=== PATIENT | male | born 2000 | race Caucasian/White ===

== ENCOUNTER 2019-11-21 08:06 | Emergency (ER) | payer OTHER, SELFPAY ==
--- NOTE | ~2019-11-21 | CT_ITS ---
EXAMINATION: CT abdomen pelvis w con INDICATION: Lower abdominal pain, history of appendectomy TECHNIQUE: Computed tomographic images of the abdomen and pelvis were obtained after the administrati on of 100 cc of Omnipaque 350 intravenous contrast. The dose-length product (DLP) was 470.25 mGy-cm. Automated exposure control and iterative reconstruction technique were employed. COMPARISON: 09/23/2011 FINDINGS: The lung bases are clear. The heart size is normal. The liver, spleen, pancreas, gallbladde r, and adrenal glands are normal. The kidneys are unremarkable. No pathologically enlarged abdominal or pelvic lymph nodes are identified. There is no free intraperitoneal gas or evidence of bowel obstr uction. Changes of appendectomy are noted. IMPRESSION: 1. No CT correlate for the patient's symptoms. Reviewed, dictated and finalized at location A.
[2019-11-21 08:19] VITALS: BP 144/83; PULSE 74; RESP 16; TEMP 36.8; O2SAT 98
--- NOTE | 2019-11-21 08:26 | ED.ABDPAIN ---
HPI - Abdominal Pain General Chief Complaint: Abdominal Pain Stated Complaint: abd pain Time Seen by Provider: 11/21/19 08:17 Source: patient and family Mode of arrival: ambulatory Limitations: no limitations History of Present Illness HPI narrative: Patient presents with his father for diffuse abdominal pain. Started 2 days ago with diarrhea. Radiates to the back. No dysuria. No blood in the stool. Wakes up with chills. No documented fever. No cough or cold. Pain was 9 out of 10 earlier. He has severe nausea yesterday but no vomiting. He tried ibuprofen for the pain. He has a history of appendectomy. He takes no prescription meds. Is working at a [employer]. He does not smoke cigarettes, he does drink alcohol, he does not do marijuana. MD elicited complaint: abdominal pain Pertinent past history: other (Appendectomy) Onset (ago): day(s) Pain Consistency: constant Location: periumbilical Severity: severe Pain scale (0-10): 3 Quality: cramping Radiation: back Exacerbating factors: nothing Relieving factors: nothing Related Data Allergies Allergy/AdvReac Type Severity Reaction Status Date / Time No Known Allergies Allergy Verified 11/21/19 08:29 Review of Systems Review of Systems: Narrative: CONSTITUTIONAL: Denies fever, chills, or sweats. ENT: Denies rhinorrhea, congestion, sore throat, or otalgia. CARDIOVASCULAR: Denies chest pain, palpitations, or edema. RESPIRATORY: Denies cough or dyspnea. GASTROINTESTINAL: He has abdominal pain, nausea, and diarrhea but no vomiting GENITOURINARY: Denies dysuria or hematuria. SKIN: Denies rash or itching. MUSCULOSKELETAL: Denies back pain, joint pain, or myalgia. NEUROLOGIC: Denies headache, numbness, or weakness. All systems reviewed & are unremarkable except as noted in HPI and below PMFSH Past Medical History Medical History Diarrhea Surgical History Surgical History (Updated 11/21/19 @ 08:29 by Neelam Mariee MD) History of appendectomy Social History Social History (Updated 11/21/19 @ 08:29 by Neelam Mariee MD) Smoking status: Never smoker Second hand tobacco smoke exposure: No Alcohol intake: current Gender identity (if verbalized by the patient): Male Exam Narrative: Exam Narrative: GENERAL: Well-appearing, well-nourished, and in no acute distress. Tall. HEAD: Normocephalic, atraumatic. EYES: PERRLA and EOMI. ENT: Nares clear, no rhinorrhea or epistaxis. Mucous membranes moist. NECK: Supple. CHEST: Clear to auscultation. No respiratory distress. HEART: Regular rate and rhythm. No murmur heard. Normal peripheral pulses. ABDOMEN: Soft, nontender, nondistended, normal active bowel sounds. EXTREMITIES: Normal range of motion. No edema. SKIN: Warm, dry, no rash. NEURO: No focal deficits. Alert and oriented x3. PSYCH: Normal mood and affect. Const: General: no acute distress and alert Orientation/consciousness: patient oriented x3 Course Reevaluation(s) Reevaluation #1: The patient was feeling better with the pain 3 out of 10. Had a discussion about pancreatitis with the patient and his father. Recommended he follow-up with GI. Recommended he stop drinking alcohol. We will give him 2 days off work. Will prescribe 12 Vicodin. He also will need an internal medicine doctor. 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 Date: 11/21/19 Time: 09:48 Vital Signs Vital signs: Vital Signs Temperature 98.3 F 11/21/19 08:19 Pulse Rate 74 11/21/19 08:19 Respiratory Rate 16 11/21/19 08:19 Blood Pressure 144/83 H 11/21/19 08:19 Pulse Oximetry 98 11/21/19 08:19 Temperature 98.3 F 11/21/19 08:19 Pulse Rate 74 11/21/19 08:19 Respiratory Rate 16 11/21/19 08:19 Blood Pressure 131/76 11/21/19 08:46 Pulse Oximetry 99 11/21/19 08:46 MDM - Abdominal Pain Medical Records Attestation: I reviewed the patient's medical records. Lab Data Attestation: I reviewed the patient's lab re
[2019-11-21 08:27] VITALS: BP 144/83; O2SAT 99
[2019-11-21 08:31] VITALS: BP 142/92; O2SAT 99
[2019-11-21] MEDS: SODIUM CHLORIDE 0.9% IV 1,000 ML 999 ML IV CONT (08:39)
[2019-11-21 08:44] LABS: Add Urine Microscopic? NO; Appearance Urine Clear (Clear); Bilirubin Urine Negative (Negative); Blood Urine Negative (Negative); Color Urine Yellow (Yellow); Glucose Urine UA Negative (Negative); Ketones Urine Negative (Negative); Leukocyte Esterase Ur Negative LEU/UL (Negative); Nitrate Urine Negative (Negative); Protein Urine Negative (Negative); Specific Grav Ur 1.024 (1.001-1.035); Urobilinogen Urine Negative mg/dL (<2.0)
[2019-11-21 08:46] VITALS: BP 131/76; O2SAT 99
[2019-11-21 08:58] LABS: Alanine Aminotransferase 18 U/L (4-50); Albumin Level 4.6 g/dL (3.5-5.1); Alkaline Phosphatase 63 U/L (38-126); Anion Gap 8 mmol/L (8-16); Aspartate Amino Transferase 28 U/L (17-59); Basophils Percent Auto 0.5 % (0.2-1.2); Bilirubin,Total 0.8 mg/dL (0.2-1.3); Blood Urea Nitrogen 14 mg/dL (9-20); Carbon Dioxide 24 mmol/L (22-30); Chloride 106 mmol/L (98-107); Eosinophils Absolute Auto 0.2 K/mm3 (0-0.3); Eosinophils Percent Auto 2.7 % (0-4.4); Estimated CRCL calculation 136 ml/min; Estimated Glomerular Filt Rate > 60; Glucose 104 mg/dL (75-110); Hematocrit 42.4 % (42.0-52.0); Hemoglobin 14.7 g/dL (14.0-18.0); Immature Granulocyte Absolute 0.03 K/mm3 (0.00-0.031); Immature Granulocyte Percent A 0.4 % (0-0.5); Lipase 412 U/L (23-300); Lymphocytes Absolute Auto 1.01 K/mm3 (0.9-3.2); Lymphocytes Percent Auto 13.1 % (18.3-44.2); Mean Corpuscular HGB Conc 34.7 g/dl (32-36); Mean Corpuscular Hemoglobin 30.5 pg (26-34); Mean Platelet Volume 10.5 fl (7.4-10.4); Monocytes Absolute Auto 0.9 K/mm3 (0.1-0.6); Monocytes Percent Auto 11.6 % (2.6-8.5); Neutrophils Absolute Auto 5.5 K/mm3 (1.3-6.7); Neutrophils Percent Auto 71.7 % (45.5-73.1); Platelet Count Result 188 k/mm3 (150-375); Potassium 4.1 mmol/L (3.4-5.0); Red Blood Count 4.82 M/mm3 (4.6-6.20); Red Cell Distribution Width 12.9 % (11.5-14.5); Sodium 138 mmol/L (137-145); White Blood Count 7.7 K/mm3 (4.5-10.0)
[2019-11-21 09:21] LABS: Estimated CRCL calculation 136 ml/min; Estimated Glomerular Filt Rate > 60
== END 2019-11-21 09:56 | disposition home or self-care (01) ==
PROVIDERS: Emergency Provider Emergency Medicine; PCP Family Medicine
DX: K85.90 Acute pancreatitis without necrosis or infection, unspecified (principal)
CPT/HCPCS: 36415; 74177; 80053; 81003; 83690; 85025; 96360; 99284; J7030; Q9967

== ENCOUNTER 2019-12-30 00:36 | Outpatient (CLI) | payer OTHER, SELFPAY ==
[2019-12-30 14:01] LABS: SARS-CoV-2 RNA PCR Negative
== END 2019-12-30 00:37 | disposition home or self-care (01) ==
LOC: ANHCOVIDDT 00:36
PROVIDERS: PCP Family Medicine; Visit Provider Internal Medicine Gastroenterology
DX: Z01.812 Encounter for preprocedural laboratory examination (principal); Z20.828 Contact with and (suspected) exposure to other viral communicable diseases
CPT/HCPCS: 87635; C9803; U0003

== ENCOUNTER 2020-01-02 02:40 | Day surgery (SDC) | payer OTHER, SELFPAY ==
[2019-12-26 14:43] VITALS: BMI 24.4
[2020-01-02 09:48] VITALS: BP 124/71; PULSE 70; RESP 16; TEMP 36.7; O2SAT 98; BMI 24.3
--- NOTE | 2020-01-02 09:50 | WPDANESEPPF ---
Anes - Initial Pre Proc Eval Procedure: Operation Date: 01/02/20 10:45 Proposed Procedures p Esophagogastroduodenoscopy - Ricardo Wasserman MD Date/Time: 01/02/20 09:50 Surgeon: Ricardo Wasserman MD Pre Op Diagnosis: Epigastric Pain/ Other Fecal Abnormalities Patient Data Age: 19 Gender: M Height: 6 ft 3 in Weight: 88.6 kg Allergies Allergy/AdvReac Type Severity Reaction Status Date / Time No Known Allergies Allergy Verified 01/02/20 09:46 Home Medications Medication Instructions Recorded Confirmed Type hydrocodone-acetaminophen 12/26/19 12/26/19 History hydrocodone-acetaminophen 01/02/20 History Patient hx anesthesia problems: none Family hx anesthesia problems: none PMFSH Past Medical History Medical History (Updated 12/06/19 @ 14:49 by Ricardo Wasserman MD) Diarrhea Epigastric pain Loose stools Surgical History Surgical History History of appendectomy Social History Social History Smoking status: Never smoker Second hand tobacco smoke exposure: No Alcohol intake: current Gender identity (if verbalized by the patient): Male Anes - Eval Final PreProcedure Day of Procedure 01/02/20 09:50 Patient weight: normal Heart: regular rate and rhythm Lungs: clear to auscultation Airway: Mallampati scale class II Neurological: alert and oriented Last oral intake: >/= 8 hours ASA classification: II Emergent: no Anesthetic plan: proceed Anesthesia type and monitoring: general GIVS and standard monitoring Informed Consent: The patient's anesthetic plan and its attendant risks and benefits were discussed with the patient/family/POA. Questions were solicited and answers provided to the satisfaction of the patient/family/POA.
[2020-01-02] MEDS: BENZOCAINE (*SP) 60 ML SPRAY CAN (HURRICAINE) 1 SPRAY MUCOUS MEM (10:34)
--- NOTE | 2020-01-02 10:44 | WPDHPUPDATE1 ---
History and Physical Update Update Date/Time: 01/02/20 10:44 History and Physical has been reviewed, including an updated exam of the patient. There are NO changes in the patient's condition. Risks, benefits, and alternatives have been discussed and questions answered. Patient agrees to proceed with procedure.
[2020-01-02 10:48] VITALS: BP 99/64; PULSE 60; RESP 16; O2SAT 98
[2020-01-02 10:58] VITALS: BP 109/52; PULSE 62; RESP 16; O2SAT 98
[2020-01-02 11:08] VITALS: BP 110/62; PULSE 64; RESP 18; O2SAT 98
--- NOTE | 2020-01-02 11:32 | SUR.PHASEII ---
1048--received pt into postop with iv fluids infusing. 700mls left to infuse. Dc'd IV and fluids. 300mls infused.
== END 2020-01-02 11:28 | disposition home or self-care (01) ==
PROVIDERS: PCP Family Medicine; Visit Provider Internal Medicine Gastroenterology
PROC: 0DJ08ZZ Inspection of Upper Intestinal Tract, Via Natural or Artificial Opening Endoscopic (ICD-10-PCS; CPT 43235; principal; 2020-01-02 10:45)
DX: K21.0 Gastro-esophageal reflux disease with esophagitis (principal); K44.9 Diaphragmatic hernia without obstruction or gangrene; K29.50 Unspecified chronic gastritis without bleeding
CPT/HCPCS: 43239; 88305; J2704

== ENCOUNTER 2020-01-11 07:51 | Outpatient (CLI) | payer OTHER, SELFPAY ==
--- NOTE | ~2020-01-11 | MR_ITS ---
EXAMINATION: MR MRCP wo/w con/w 3D wo ind DATE: 01/11/2020 09:19 INDICATION: Acute pancreatitis without necrosis or infection TECHNIQUE: Magnetic resonance imaging (MRI) of the abdomen was performed without and with intravenous contrast. Sequences included coronal T2-weighted SS-FSE ARC, coronal T2-weighted FS SS-FSE, coronal T2-weighted 2D FS FIESTA, Water:Coronal LAVA-Flex, sagittal T2-weighted SS-FSE ARC, axial SSFSE ARC, axial 3D DualEcho, axial DWI B=600, axial T1-weighted LAVA, FAT:Coronal LAVA-Flex, and coronal in and opposed phase LAVA-Flex. Thick-slab T2-weighted FRFSE-XL images were obtained for magnetic resonance cholangiopancreatography (MRCP). Maximum intensity projection 3-D reconstructions of the volumetric data were created by the technologist. Postcontrast sequences included a time course of axial T1-weig hted LAVA, FAT:Coronal LAVA-Flex, coronal in and opposed phase LAVA-Flex, and Water:Coronal LAVA-Flex . COMPARISON: CT, 11/21/2019 CONTRAST: Multihance, 17 cc FINDINGS: ABDOMEN MRI: The liver, spleen, pancreas, gallbladder, adrenal glands, and kidneys are normal. No asc ites is identified. There are no pathologically enlarged abdominal lymph nodes. No dilated loops of b owel are evident. There is no abnormal enhancement after contrast administration. ABDOMEN MRCP: There is no intrahepatic or extrahepatic biliary dilatation. The pancreatic duct is nor mal in course and caliber. No biliary stones or stricture are identified. IMPRESSION: 1. No evidence of pancreatitis. Unremarkable MRCP. Reviewed, dictated and finalized at location A.
[2020-01-11 08:49] LABS: Estimated Glomerular Filt Rate > 60
== END 2020-01-11 07:52 | disposition home or self-care (01) ==
PROVIDERS: PCP Family Medicine; Visit Provider Internal Medicine Gastroenterology
DX: K85.90 Acute pancreatitis without necrosis or infection, unspecified (principal)
CPT/HCPCS: 74183; 76376; A9577

== ENCOUNTER 2020-02-17 08:56 | Outpatient (NON) | payer OTHER, SELFPAY ==
[2020-02-22 08:56] LABS: SARS-CoV-2 RNA PCR Negative
== END 2020-02-17 08:57 ==
LOC: ANHCOVIDDT 08:58
PROVIDERS: PCP Family Medicine; Visit Provider Family Medicine
DX: Z20.828 Contact with and (suspected) exposure to other viral communicable diseases (principal)
CPT/HCPCS: 87635; C9803; U0003

== ENCOUNTER → 2020-07-13 01:10 | Outpatient (CLI) | payer OTHER, SELFPAY ==
[2020-07-13 18:53] LABS: SARS-CoV-2 RNA PCR Negative
== END ==
PROVIDERS: PCP Family Medicine; Visit Provider Internal Medicine Gastroenterology
DX: Z01.812 Encounter for preprocedural laboratory examination (principal); Z20.822 Contact with and (suspected) exposure to COVID-19
CPT/HCPCS: C9803; U0003; U0005

== ENCOUNTER 2020-07-17 02:32 | Day surgery (SDC) | payer OTHER, SELFPAY ==
[2020-07-05 12:42] VITALS: BMI 25.0
[2020-07-17 09:51] VITALS: BMI 25.6
[2020-07-17] MEDS: LACTATED RINGERS 1,000 ML 150 ML IV CONT (09:59)
--- NOTE | 2020-07-17 10:16 | WPDANESEPPF ---
Anes - Initial Pre Proc Eval Procedure: Operation Date: 07/17/20 11:00 Proposed Procedures p Esophagogastroduodenoscopy - Ricardo Wasserman MD Date/Time: 07/17/20 10:16 Surgeon: Ricardo Wasserman MD Pre Op Diagnosis: Erosive Esophagitis Patient Data Age: 20 Gender: M Height: 6 ft 3 in Weight: 92.9 kg Allergies Allergy/AdvReac Type Severity Reaction Status Date / Time No Known Allergies Allergy Verified 07/17/20 09:50 Home Medications Medication Instructions Recorded Confirmed Type omeprazole 20 mg capsule,delayed 20 mg PO DAILY #30 cap 07/16/20 07/17/20 Rx release Patient hx anesthesia problems: none Family hx anesthesia problems: none PMFSH Past Medical History Medical History Diarrhea Diarrhea Epigastric pain Erosive esophagitis Loose stools Surgical History Surgical History History of appendectomy Social History Social History Smoking status: Never smoker Second hand tobacco smoke exposure: No Alcohol intake: current Substance use: current Substance use type: marijuana Living arrangements: alone Gender identity (if verbalized by the patient): Male Spiritual care concerns: No Anes - Eval Final PreProcedure Day of Procedure 07/17/20 10:16 Patient weight: normal Heart: regular rate and rhythm Lungs: clear to auscultation Airway: Mallampati scale class II Neurological: alert and oriented Last oral intake: >/= 8 hours ASA classification: II Emergent: no Anesthetic plan: proceed Anesthesia type and monitoring: general GIVS and standard monitoring Informed Consent: The patient's anesthetic plan and its attendant risks and benefits were discussed with the patient/family/POA. Questions were solicited and answers provided to the satisfaction of the patient/family/POA.
--- NOTE | 2020-07-17 10:45 | PM.HPGS ---
History of Present Illness History of Present Illness Consent: Risks, benefits, and alternatives have been discussed and questions answered. Patient agrees to proceed with procedure. Chief complaint: Erosive Esophagitis Narrative: Xander Caldwell is a 20 year old male erosive esophagitis diagnosed in 12/2019, doing much better with omeprazole. Also less diarrhea now. Review of Systems Constitutional: Constitutional: Denies headache(s) and Denies weakness Eyes: Eyes: Denies blurry vision ENT: Reports Normal hearing present, Denies headache(s) and Denies neck pain Cardiovascular: Cardiovascular: Denies chest pain and Denies dyspnea Respiratory: Respiratory: Denies dyspnea Gastrointestinal: Gastrointestinal: Reports no additional gastrointestinal complaints Genitourinary: Genitourinary: Denies dysuria Musculoskeletal: Musculoskeletal: Denies neck pain Integumentary/Breasts: Skin/Breast: Denies dry skin Neurologic: Reports Normal hearing present, Denies headache(s) and Denies weakness Psychiatric: Psychiatric: Denies anxiety Endocrine: Endocrine: Denies change in body appearance Hematologic/Lymphatic: Hematologic/Lymphatic: Denies easy bleeding Allergic/Immunologic: Allergic/Immunologic: Denies urticaria PMFSH Past Medical History Medical History Diarrhea Diarrhea Epigastric pain Erosive esophagitis Loose stools Surgical History Surgical History History of appendectomy Social History Social History Smoking status: Never smoker Second hand tobacco smoke exposure: No Alcohol intake: current Substance use: current Substance use type: marijuana Living arrangements: alone Gender identity (if verbalized by the patient): Male Spiritual care concerns: No Meds Home Medications and Allergies Home Medications Medication Instructions Recorded Confirmed Type omeprazole 20 mg capsule,delayed 20 mg PO DAILY #30 cap 07/16/20 07/17/20 Rx release Allergies Allergy/AdvReac Type Severity Reaction Status Date / Time No Known Allergies Allergy Verified 07/17/20 09:50 Exam Const: General: comfortable and no acute distress HENMT: General nose exam: Normal nares present Eyes: General: appearance normal, both eyes and all related structures Neck: Neck: no JVD Resp: Auscultation: clear to auscultation bilaterally Cardio: Rate: regular rate Rhythm: regular rhythm GI: Inspection: non-distended GI Palp: Yes Soft to palpation Skin: General skin exam: normal color Neuro: General: gait normal Speech: normal speech Extrem: General: normal to inspection Psych: Mental Status: mental status grossly normal Assessment and Plan Assessment and plan (1) Erosive esophagitis: Code(s): K22.10 - Ulcer of esophagus without bleeding Status: Acute Assessment and Plan: egd (2) Diarrhea: Code(s): R19.7 - Diarrhea, unspecified Status: Acute Assessment and Plan: will get duodenal bx
[2020-07-17 11:13] VITALS: BP 96/53; PULSE 76; RESP 28; O2SAT 94
[2020-07-17 11:23] VITALS: BP 112/63; PULSE 71; RESP 28; O2SAT 94
[2020-07-17 11:33] VITALS: BP 116/77; PULSE 76; RESP 25; O2SAT 97
== END 2020-07-17 11:47 | disposition home or self-care (01) ==
PROVIDERS: PCP Family Medicine; Visit Provider Internal Medicine Gastroenterology
PROC: 0DJ08ZZ Inspection of Upper Intestinal Tract, Via Natural or Artificial Opening Endoscopic (ICD-10-PCS; CPT 43235; principal; 2020-07-17 11:00)
DX: K21.00 Gastro-esophageal reflux disease with esophagitis, without bleeding (principal); K44.9 Diaphragmatic hernia without obstruction or gangrene; R19.7 Diarrhea, unspecified; F12.90 Cannabis use, unspecified, uncomplicated
CPT/HCPCS: 43239; 88305; C9803; J2704; J7120; U0003; U0005

== ENCOUNTER 2021-01-20 03:00 | Day surgery (SDC) | payer OTHER, SELFPAY ==
[2021-01-08 13:18] VITALS: BMI 26.2
--- NOTE | 2021-01-17 19:01 | WPDANESEPPF ---
Anes - Initial Pre Proc Eval Procedure: Operation Date: 01/20/21 11:00 Proposed Procedures p Colonoscopy - Ricardo Wasserman MD Date/Time: 01/17/21 19:01 Surgeon: Ricardo Wasserman MD Pre Op Diagnosis: diarrhea Patient Data Age: 20 Gender: M Height: 1.91 m Weight: 95 kg Allergies Allergy/AdvReac Type Severity Reaction Status Date / Time No Known Allergies Allergy Verified 01/20/21 09:39 Home Medications Medication Instructions Recorded Confirmed Type omeprazole 20 mg capsule,delayed 20 mg PO DAILY #30 cap 07/16/20 01/20/21 Rx release ondansetron HCl 4 mg tablet 4 mg PO Q8H PRN #90 tablet 12/19/20 01/20/21 Rx amitriptyline 10 mg tablet 10 mg PO QHS #30 tablet 01/16/21 01/20/21 Rx Patient hx anesthesia problems: none Family hx anesthesia problems: none Results Review: All pre-operative results and documents have been reviewed as part of the pre-operative evaluation. [facility] Past Medical History Medical History (Updated 01/17/21 @ 19:01 by Anand Knox DO) Abdominal pain Diarrhea Diarrhea Epigastric pain Erosive esophagitis Esophagitis Hiatal hernia Loose stools Nausea & vomiting NATALIE (obstructive sleep apnea) CPAP Surgical History Surgical History History of appendectomy Social History Social History Second hand tobacco smoke exposure: No Alcohol intake: current Drinks per week: 1 Substance use: current Substance use type: marijuana Gender identity (if verbalized by the patient): Male Spiritual care concerns: No Anes - Eval Final PreProcedure Day of Procedure 01/17/21 19:01 Patient weight: overweight Heart: regular rate and rhythm Lungs: clear to auscultation and normal air movement Airway: Mallampati scale class II Neurological: alert and oriented Last oral intake: >/= 8 hours ASA classification: III Emergent: no Anesthetic plan: proceed Anesthesia type and monitoring: general GIVS and standard monitoring Results Review: All pre-operative results and documents have been reviewed as part of the pre-operative evaluation. Informed Consent: The patient's anesthetic plan and its attendant risks and benefits were discussed with the patient/family/POA. Questions were solicited and answers provided to the satisfaction of the patient/family/POA.
[2021-01-20 09:43] VITALS: BP 124/74; PULSE 61; RESP 16; TEMP 36.8; O2SAT 98
[2021-01-20] MEDS: LACTATED RINGERS 1,000 ML 150 ML IV CONT (09:50)
--- NOTE | 2021-01-20 10:15 | WPDHPUPDATE1 ---
History and Physical Update Update Date/Time: 01/20/21 10:15 History and Physical has been reviewed, including an updated exam of the patient. There are NO changes in the patient's condition. Risks, benefits, and alternatives have been discussed and questions answered. Patient agrees to proceed with procedure.
[2021-01-20 10:36] VITALS: BP 94/62; PULSE 64; RESP 18; O2SAT 97
[2021-01-20 10:46] VITALS: BP 99/62; PULSE 50; RESP 17; O2SAT 100
[2021-01-20 10:56] VITALS: BP 120/78; PULSE 60; RESP 19; O2SAT 100
== END 2021-01-20 11:16 | disposition home or self-care (01) ==
PROVIDERS: PCP Family Medicine; Visit Provider Internal Medicine Gastroenterology
PROC: 0DJD8ZZ Inspection of Lower Intestinal Tract, Via Natural or Artificial Opening Endoscopic (ICD-10-PCS; CPT 45378; principal; 2021-01-20 11:00)
DX: R19.7 Diarrhea, unspecified (principal); K63.5 Polyp of colon; R10.9 Unspecified abdominal pain; K44.9 Diaphragmatic hernia without obstruction or gangrene; K22.10 Ulcer of esophagus without bleeding; K21.00 Gastro-esophageal reflux disease with esophagitis, without bleeding; K64.8 Other hemorrhoids; G47.33 Obstructive sleep apnea (adult) (pediatric); F12.90 Cannabis use, unspecified, uncomplicated; R11.2 Nausea with vomiting, unspecified
CPT/HCPCS: 45380; 88305; J2001; J2704; J7120

== ENCOUNTER → 2021-04-04 01:13 | Outpatient (CLI) | payer OTHER, SELFPAY ==
[2021-04-04 14:23] LABS: Influenza Control Positive
[2021-04-04 20:43] LABS: SARS-CoV-2 RNA PCR Positive
== END ==
PROVIDERS: PCP Family Medicine; Visit Provider Family Medicine
DX: U07.1 COVID-19 (principal)
CPT/HCPCS: 87804; C9803; U0003; U0005